=== PATIENT | male | born 1985 | race Caucasian/White ===

== ENCOUNTER 2017-03-21 23:29 | Emergency (ER) | payer OTHER ==
[~2017-03-21 23:29] MED LIST: OXYCODONE/ACETA1 TA1 PO; ZOFRAN ODT4 MG PO
--- NOTE | 2017-03-22 00:54 | ED CLINICAL REPORT ---
Clinical Report - Physicians/Mid Levels [facility] [address] [place] [address] 03/21/2017 23:30 Patient: BENNY LLOYD Time Seen: 2345; initial patient contact. Arrived- By private vehicle. Historian- patient. HISTORY OF PRESENT ILLNESS Chief Complaint: Injury to the left index finger. The injury happened today. Occurred at home. ( states he thought the knife was locked and the blade flipped open and cut him.). The patient sustained a laceration from a knife. Pain is not mild. Patient denies injury to the head or neck. No other injury. REVIEW OF SYSTEMS The patient sustained a laceration. No swelling, tingling, numbness, weakness or foreign body. All systems otherwise negative, except as recorded above. PAST HISTORY See nurses notes. Tetanus immunization status is unknown. Medications: Antidepressant. Allergies: All cillins. Amoxicillin. Penicillins. SOCIAL HISTORY Never smoker. No alcohol use or drug use. No recent travel. Is a local resident. ADDITIONAL NOTES The nursing notes have been reviewed. PHYSICAL EXAM Vital Signs: 03/21/2017 23:46 BP: 134/84. HR: 79. RR: 16. O2 saturation: 97%. Temp: 98.7 F. Pain level now: 4/10. Blood pressure normal. Oxygen saturation normal. Appearance: Alert. Oriented X3. No acute distress. Head: Head atraumatic. CVS: Normal heart rate and rhythm. Heart sounds normal. Pulses normal. Respiratory: No respiratory distress. Breath sounds normal. Chest nontender. Abdomen: No visible injury. Soft and nontender. Bowel sounds normal. Skin: Skin warm and dry. Skin intact. Extremities: No soft tissue tenderness or bony tenderness. No signs of infection present. (2 cm laceration to the radial aspect of the left index finger. full thickness. no bone or tendon exposed. full AROM of the major joints of the finger including the DIP joint. neuro vasc intact. no FB.). No wrist injury. No hand injury. Hand and wrist exam otherwise negative. Extremities otherwise negative. Neuro, Vascular and Tendons: Vascular status intact. Sensation intact. Motor intact. Tendon function intact. PROGRESS AND PROCEDURES Laceration Repair: Location: left index finger. Wound depth/shape- subcutaneous. It does not involve muscle. Distal neuro/vascular/tendon status normal. Local anesthesia provided using 1% lidocaine no epi. Prepped with Betadine. Wound explored, cleansed, irrigated and examined to the base in bloodless field extensively with normal saline. Closure of skin: interrupted 4-0 nylon (3 sutures). Post-procedure: he is stable and there are no complications. Bleeding is controlled and neuro-vascular status is intact distal to the wound. Dressing applied. Tetanus immunization given. Estimated blood loss: < 3 cc. Course of Care: the patient is a pleasant 32-year-old male presented for a virus of uncomplicated laceration to the left index finger. No tendon or bone involvement on examination. Patient is neurovascular intact. Full function of the finger noted on examination. No other injuries noted. Verbal informed consent obtained for suturing of the patient's wound. Please see procedure note for further details. Wound was closed without complications. No signs of foreign body or infection. Had discussion with the patient in regards to wound infection risk. Furthermore discussed with the patient is workup here in the emergency department including diagnosis, Home care, follow-up, Return precautions. all questions answered. The patient expressed understanding of these instructions and was agreeable to them. Repeat neurovascular examination continues to be benign and intact. Disposition: Discharged. Condition: good. CLINICAL IMPRESSION Single deep laceration to the right 2nd toe.No foreign body present or right toenail injury. INSTRUCTIONS Limit use of your right hand for three days. Warnings: GENERAL WARNINGS: Return or contact your physician immediately if your condition worsens or changes unexpectedly, if not improving as expected, or if other problems arise. Specifically return if pain, vomiting, bleeding, breathing difficulty or fever. Your Current Medications: CONTINUE TAKING THE FOLLOWING MEDICATIONS: Antidepressant*. OTC Medications: Acetaminophen (available over the counter): take according to label instructions. Motrin (available over the counter): take according to label instructions. Follow-up: Return to the emergency department as needed. Follow up with your doctor in three days. Reason for referral: recheck today's concerns. Summary of care provided to patient via paper. Screening today revealed the patient's blood pressure to be in the normal range. The patient should follow up with a primary care provider for blood pressure management. Understanding of the discharge instructions verbalized by patient. (Electronically signed by Anders Stone Dr. 03/24/2017 8:54)
--- NOTE | 2017-03-22 00:54 | ED NURSING NOTES ---
Clinical Report - Nurses [facility] [address] [place] [address] 03/21/2017 23:30 [id number] TRI[facility] Triage time 23:39. Acuity: LEVEL 4. --23:53 Simon Barron R.N. 23:46 03/21/17. BP: 134/84. HR: 79. RR: 16. O2 saturation: 97%. Temp: 98.7 F. Pain level now: 02/03. --23:53 Simon Barron R.N. Chief Complaint: INJURY TO THE LEFT INDEX FINGER. --01:09 Juliano Glass R.N. Weight: 100.6 kg stated. Height/Length: 67 inches Per Patient. BMI: 34.8. --23:51 Simon Barron R.N. Medications Antidepressant. --23:49 Simon Barron R.N. Medication/allergy information source: the patient. --23:53 Simon Barron R.N. Allergies All cillins. Amoxicillin. Penicillins. --23:49 Simon Barron R.N. History Arrived by private vehicle. Historian: patient. Accompanied by family. ( Accidentally cut his left thumb and index fingers with his pocket knife tonight, controlled bleeding with pressure dressing.). This occurred just prior to arrival. He sustained a laceration from a sharp edge and knife. 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 PAST MEDICAL HX: Date of last tetanus shot cannot be recalled and tetanus immunization status is uncertain. SOCIAL HX: Occasional alcohol use; consumes liquor occasionally. --23:53 Simon Barron R.N. Interventions ID band on patient. To room. --23:53 Simon Barron R.N. PHYSICAL ASSESSMENT Ambulatory to room. GENERAL / NEURO / PSYCH: Oriented X 4. Alert. Appears in no acute distress. EXTREMITIES: Capillary refill is less than 2 seconds in the extremities. Extremity pulses are within normal limits. Extremities exhibit normal ROM. Neuro-vascular status intact to the extremity. SKIN: Skin is warm and dry. Laceration; (left 1st and 2nd fingers). --23:54 Simon Barron R.N. NURSING PROGRESS NOTES Neuro-vascular extremity check. Reassurance given. Patient identifiers checked. Call light placed in reach. Side rails up x 1. Bed placed in lowest position. Brakes of bed on. Patient ready for evaluation- ED physician notified. --23:54 Simon Barron R.N. 00:24 03/22/2017 GJNGSWX-RYQOVF-FRWWG PERTUSSIS IM 0.5 mL given. (Lot#: [id number], expiration date: 03/06/2019, Building Attendant: sanofi pasteur). Given in the right deltoid. Allergies verified and confirmed 5 rights. Vaccine information statement provided to the patient. --00:26 Juliano Glass R.N. 00:47. WOUND REPAIR: Wound repair performed by ED physician. Assisted by [facility] tech. The wound is located on the left index finger. Preparation: with 1% lidocaine. Wound cleansed per physician and irrigated per physician. Procedure: wound repaired with sutures. Post-procedure: he was stable, no complications and bleeding controlled. Total time of assist / procedure: 15 minutes. ( 1 suture pack used in repair). --01:07 Juliano Glass R.N. 00:58. Applied clean dressing consisting of Band-Aid, following the application of antibiotic ointment (by [facility]). --01:08 Juliano Glass R.N. 01:03. The patient is calm and resting quietly. GENERAL / NEURO / PSYCH: Alert. Oriented X 4. RESPIRATORY: No respiratory distress. SKIN: Skin is warm and dry. --01:08 Juliano Glass R.N. DISPOSITION / DISCHARGE Departure time: 01:06. Condition at departure: stable. No learning barriers present. Discharge instructions provided and reviewed with the patient. Patient verbalized understanding. Written instructions provided in Mauritian. The patient was discharged home and accompanied by upsetter. He left the Emergency Department ambulatory and via private vehicle. Customer Acquisition Specialist driving. FALL RISK ASSESSMENT: Fall risk assessment completed. No fall risk identified. --01:06 Juliano Glass R.N. 00:58 03/22/17. BP: 133/85. HR: 82. RR: 17. O2 saturation: 96% on room air. Pain level now: 12/06. --01:06 Juliano Glass R.N. Locked/Released at 03/22/2017 1:10 by Juliano Glass R.N.
--- NOTE | 2017-03-22 00:54 | ED NURSING NOTES ---
Clinical Report - Nurses [facility] [address] [place] [address] 03/21/2017 23:30 [id number] Triage time 23:39. Acuity: LEVEL 4. --23:53 Simon Barron R.N. 23:46 03/21/17. BP: 134/84. HR: 79. RR: 16. O2 saturation: 97%. Temp: 98.7 F. Pain level now: 02/03. --23:53 Simon Barron R.N. Chief Complaint: INJURY TO THE LEFT INDEX FINGER. --01:09 Juliano Glass R.N. Weight: 100.6 kg stated. Height/Length: 67 inches Per Patient. BMI: 34.8. --23:51 Simon Barron R.N. Medications Antidepressant. --23:49 Simon Barron R.N. Medication/allergy information source: the patient. --23:53 Simon Barron R.N. Allergies All cillins. Amoxicillin. Penicillins. --23:49 Simon Barron R.N. History Arrived by private vehicle. Historian: patient. Accompanied by family. ( Accidentally cut his left thumb and index fingers with his pocket knife tonight, controlled bleeding with pressure dressing.). This occurred just prior to arrival. He sustained a laceration from a sharp edge and knife. 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 PAST MEDICAL HX: Date of last tetanus shot cannot be recalled and tetanus immunization status is uncertain. SOCIAL HX: Occasional alcohol use; consumes liquor occasionally. --23:53 Simon Barron R.N. Interventions ID band on patient. To room. --23:53 Simon Barron R.N. PHYSICAL ASSESSMENT Ambulatory to room. GENERAL / NEURO / PSYCH: Oriented X 4. Alert. Appears in no acute distress. EXTREMITIES: Capillary refill is less than 2 seconds in the extremities. Extremity pulses are within normal limits. Extremities exhibit normal ROM. Neuro-vascular status intact to the extremity. SKIN: Skin is warm and dry. Laceration; (left 1st and 2nd fingers). --23:54 Simon Barron R.N. NURSING PROGRESS NOTES Neuro-vascular extremity check. Reassurance given. Patient identifiers checked. Call light placed in reach. Side rails up x 1. Bed placed in lowest position. Brakes of bed on. Patient ready for evaluation- ED physician notified. --23:54 Simon Barron R.N. 00:24 03/22/2017 GSOVTIM-DQSQZD-BBERC PERTUSSIS IM 0.5 mL given. (Lot#: [id number], expiration date: 03/06/2019, Professor Of Biochemistry: sanofi pasteur). Given in the right deltoid. Allergies verified and confirmed 5 rights. Vaccine information statement provided to the patient. --00:26 Juliano Glass R.N. 00:47. WOUND REPAIR: Wound repair performed by ED physician. Assisted by [facility] tech. The wound is located on the left index finger. Preparation: with 1% lidocaine. Wound cleansed per physician and irrigated per physician. Procedure: wound repaired with sutures. Post-procedure: he was stable, no complications and bleeding controlled. Total time of assist / procedure: 15 minutes. ( 1 suture pack used in repair). --01:07 Juliano Glass R.N. 00:58. Applied clean dressing consisting of Band-Aid, following the application of antibiotic ointment (by [facility]). --01:08 Juilano Glass R.N. 01:03. The patient is calm and resting quietly. GENERAL / NEURO / PSYCH: Alert. Oriented X 4. RESPIRATORY: No respiratory distress. SKIN: Skin is warm and dry. --01:08 Juliano Glass R.N. DISPOSITION / DISCHARGE Departure time: 01:06. Condition at departure: stable. No learning barriers present. Discharge instructions provided and reviewed with the patient. Patient verbalized understanding. Written instructions provided in Swedish. The patient was discharged home and accompanied by cell tuber machine. He left the Emergency Department ambulatory and via private vehicle. Quality Control Projectionist driving. FALL RISK ASSESSMENT: Fall risk assessment completed. No fall risk identified. --01:06 Juliano Glass R.N. 00:58 03/22/17. BP: 133/85. HR: 82. RR: 17. O2 saturation: 96% on room air. Pain level now: 12/06. --01:06 Juliano Glass R.N. Locked/Released at 03/22/2017 1:10 by Juliano Glass R.N.
--- NOTE | 2017-03-22 00:54 | ED ORDER SUMMARY ---
..... Patient: BENNY LLOYD OrderSheet VisitID: [id number] [place] [address] 32y, M Registration Date/Time: 03/21/2017 ORDER SHEET Weight: 100.6 kg (stated) Allergies: All cillins, Amoxicillin, Penicillins GENERAL ORDERS: Suture Set-up: (00:03 03/22/2017 Tory Jin) (0:25 JQuivey R.N.) Dress Wounds (baci and gauze after suturing) (00:03 03/22/2017 Tory Jin) (Ack 0:25 JQuivey R.N.) (0:56 JQuivey R.N.) Irrigate Wounds (00:03 03/22/2017 Tory Jin) (0:25 JQuivey R.N.) MEDICATION ORDERS: Licmpun-Qpqvzh-Nahua Pertussis IM 0.5 mL (NOW, per protocol) (00:09 03/22/2017 Tory Jin) (Ack 0:21 JQuivey R.N.) (0:26 JQuivey R.N.) IV FLUIDS: ORDER SHEET NOTES: [Electronically signed by Juliano Glass R.N. (01:03/22/2017)] [Electronically signed by Anders Stone Dr. (08:54 03/24/2017)] [Electronically locked/signed by Juliano Glass R.N. (:03/22/2017)]
--- NOTE | 2017-03-22 00:54 | ED ORDER SUMMARY ---
..... Patient: BENNY LLOYD OrderSheet [facility] VisitID: [id number] [place] [address] 32y, M Registration Date/Time: 03/21/2017 ORDER SHEET Weight: 100.6 kg (stated) Allergies: All cillins, Amoxicillin, Penicillins GENERAL ORDERS: Suture Set-up: (00:03 03/22/2017 Tory Jin) (0:25 JQuivey R.N.) Dress Wounds (baci and gauze after suturing) (00:03 03/22/2017 Tory Jin) (Ack 0:25 JQuivey R.N.) (0:56 JQuivey R.N.) Irrigate Wounds (00:03 03/22/2017 Tory Jin) (0:25 JQuivey R.N.) MEDICATION ORDERS: Jsihrng-Hiwhty-Gekec Pertussis IM 0.5 mL (NOW, per protocol) (00:09 03/22/2017 Tory Jin) (Ack 0:21 JQuivey R.N.) (0:26 JQuivey R.N.) IV FLUIDS: ORDER SHEET NOTES: [Electronically signed by Juliano Glass R.N. (01:03/22/2017)] [Electronically signed by Anders Stone Dr. (08:54 03/24/2017)] [Electronically locked/signed by Juliano Glass R.N. (:03/22/2017)]
--- NOTE | 2017-03-24 08:54 | ED MAR SUMMARY ---
..... Medication Administration Record [facility] [address] [place] [address] Patient: BENNY LLOYD Visit ID: [id number] 32y, M Weight: 100.6 kg Height/Length: 67 in BMI: 34.8 ALLERGIES: All cillins, Amoxicillin, Penicillins Given 00:24 03/22/2017 Juliano Glass RHanselNHansel Medication Administered: MVHOQHP-FCHTIP-RARCM PERTUSSIS [IM], Dose: 0.5 mL IM. Medication Ordered: Gczhvia-Poztvb-Qbtvv Pertussis IM 0.5 mL (NOW, per protocol).
--- NOTE | 2017-03-24 08:54 | ED DISCHARGE INSTRUCTIONS ---
Patient: EBNNY LLOYD General Instructions [facility] VisitID: [id number] [place] [address] 32y, M Registration Date/Time: 03/21/2017 Single deep laceration to the right 2nd toe.No foreign body present or right toenail injury. INSTRUCTIONS Limit use of your right hand for three days. Warnings: GENERAL WARNINGS: Return or contact your physician immediately if your condition worsens or changes unexpectedly, if not improving as expected, or if other problems arise. Specifically return if pain, vomiting, bleeding, breathing difficulty or fever. Your Current Medications: CONTINUE TAKING THE FOLLOWING MEDICATIONS: Antidepressant*. OTC Medications: Acetaminophen (available over the counter): take according to label instructions. Motrin (available over the counter): take according to label instructions. Follow-up: Return to the emergency department as needed. Follow up with your doctor in three days. Reason for referral: recheck today's concerns. Summary of care provided to patient via paper. Screening today revealed the patient's blood pressure to be in the normal range. The patient should follow up with a primary care provider for blood pressure management. Understanding of the discharge instructions verbalized by patient. ADDITIONAL INFORMATION Laceration (All Closures) Alaceration is a cut through the skin. This will usually require stitches (sutures) or priti if it is deep. Minor cuts may be treated with a surgical tape closure orskin glue. Home care The following guidelines will help you care for your laceration at home: Extremity, face, or trunk wounds Keep the wound clean and dry. If a bandage was applied and it becomes wet or dirty, replace it. Otherwise, leave it in place for the first 24 hours. If stitches or priti were used, clean the wound daily. After removing the bandage, wash the area with soap and water. Use a wet cotton swab to loosen and remove any blood or crust that forms. The doctor may prescribe an antibiotic cream or ointment to prevent infection. Do not stop taking this medication until you have finished the prescribed course or the doctor tells you to stop. The doctor may also prescribe medications for pain. Follow the doctors instructions for taking these medications. You may remove the bandage to shower as usual after the first 24 hours, but do not soak the area in water (no swimming) until the stitches or priti are removed. If surgical tape was used, keep the area clean and dry. If it becomes wet, blot it dry with a towel. If skin glue was used, do not scratch, rub, or pick at the adhesive film. Do not place tape directly over the film. Do not apply liquid, ointment, or creams to the wound while the film is in place. Do not clean the wound with peroxide and do not apply ointments. Avoid activities that cause heavy sweating until the film has fallen off. Protect the wound from prolonged exposure to sunlight or tanning lamps. You may shower as usual but do not soak the wound in water (no baths or swimming). The film will fall off by itself in 510 days. Scalp wounds During the first two days, you may carefully rinse your hair in the shower to remove blood, glass or dirt particles. After two days, you may shower and shampoo your hair normally. Do not soak your scalp in the tub or go swimming until the stitches or priti have been removed. Talk with your doctor before applying any antibiotic ointment to the wound. Mouth wounds Eat soft foods to reduce pain. If the cut is inside of your mouth, clean by rinsing after each meal and at bedtime with a mixture of equal parts water and hydrogen peroxide (do not swallow!). Or, you can use a cotton swab to directly apply hydrogen peroxide onto the cut. Mouth wounds can be painful when eating. You may use an braq-ldy-wlosimr local numbing solution for pain relief. If this is not available, you may use any numbing solution for teething babies. You may apply this directly to the sores with a cotton-tip swab or with your finger. Follow-up care Follow up with your health care provider. Most skin wounds heal within ten days. Mouth and facial wounds heal within five days. However, even with proper treatment, a wound infection may sometimes occur. Therefore, you should check the wound daily for signs of infection listed below. Stitches should be removed from the face within five days; stitches and priti should be removed from other parts of the body within 714 days. If dissolving stitches were used in the mouth, these will fall out or dissolve without the need for removal. If tape closures were used, remove them yourself if they have not fallen off after 7 days. Ifskin glue was used, the film will fall off by itself in 510 days. When to seek medical care Get prompt medical attention if any of these occur: Bleeding not controlled by direct pressure Signs of infection, including increasing pain in the wound, increasing wound redness or swelling, or pus coming from the wound Fever of 100.4F (38C) or higher, or as directed by your health care provider Stitches or priti come apart or fall out or surgical tape falls off before 7 days Wound edges re-open You have been given the following additional information: Laceration, All Limit use of your right hand for three days. (Electronically signed by Anders Stone Dr. 03/24/2017 8:54)
--- NOTE | 2017-03-24 08:54 | ED MAR SUMMARY ---
..... Medication Administration Record [facility] [address] [place] [address] Patient: BENNY LLOYD Visit ID: [id number] 32y, M Weight: 100.6 kg Height/Length: 67 in BMI: 34.8 ALLERGIES: All cillins, Amoxicillin, Penicillins Given 00:24 03/22/2017 Juliano Glass RHanselNHansel Medication Administered: GXWEWXO-YRALLA-ORJRG PERTUSSIS [IM], Dose: 0.5 mL IM. Medication Ordered: Ipmrohm-Cswmmj-Rfwsg Pertussis IM 0.5 mL (NOW, per protocol).
--- NOTE | 2017-03-24 08:54 | ED MED RECONCILIATION SUMMARY ---
Patient: BENNY LLOYD Medication Reconciliation Report [facility] VisitID: [id number] [place] [address] 32y, M Registration Date/Time: 03/21/2017 Weight: 100.6 kg Height/Length: 67 in. BMI: 34.8 ALLERGIES: All cillins, Amoxicillin, Penicillins The patient's Home Medications are listed below: CONTINUE TAKING THE FOLLOWING MEDICATIONS: Antidepressant The source(s) of the original Home Medication information: patient The following Medications were given to the patient in the Emergency Department: DVSFZUS-CBSWFP-LNRVL PERTUSSIS [IM] IM 0.5 mL, administered: 03/22/2017 12:24:00 AM The following Medications were prescribed to the patient: Acetaminophen (available over the counter): take according to label instructions. -- Anders Stone Dr. Motrin (available over the counter): take according to label instructions. -- Anders Stone Dr.
--- NOTE | 2017-03-24 08:54 | ED MED RECONCILIATION SUMMARY ---
Patient: BENNY LLOYD Medication Reconciliation Report [facility] VisitID: [id number] [place] [address] 32y, M Registration Date/Time: 03/21/2017 Weight: 100.6 kg Height/Length: 67 in. BMI: 34.8 ALLERGIES: All cillins, Amoxicillin, Penicillins The patient's Home Medications are listed below: CONTINUE TAKING THE FOLLOWING MEDICATIONS: Antidepressant The source(s) of the original Home Medication information: patient The following Medications were given to the patient in the Emergency Department: GKKIMSR-WHVDUM-QKNTO PERTUSSIS [IM] IM 0.5 mL, administered: 03/22/2017 12:24:00 AM The following Medications were prescribed to the patient: Acetaminophen (available over the counter): take according to label instructions. -- Anders Stone Dr. Motrin (available over the counter): take according to label instructions. -- Anders Stone Dr.
== END 2017-03-22 01:05 | disposition home or self-care (01) ==
LOC: ED SRH 23:29
DX: S61.211A Laceration without foreign body of left index finger without damage to nail, initial encounter (principal); W26.0XXA Contact with knife, initial encounter; Y93.9 Activity, unspecified; Y99.9 Unspecified external cause status; Y92.009 Unspecified place in unspecified non-institutional (private) residence as the place of occurrence of the external cause; Z23 Encounter for immunization; Z88.0 Allergy status to penicillin; Z88.1 Allergy status to other antibiotic agents